=== PATIENT | female | born 1970 | race African-American/Black ===

== ENCOUNTER 2017-06-01 08:40 | Outpatient (CLI) | payer OTHER | END 2017-06-01 08:41 | disposition home or self-care (01) | LOC: BICMAMMO 08:40 | PROVIDERS: ATTEND Family Medicine | DX: Z12.31 Encounter for screening mammogram for malignant neoplasm of breast (principal); Z85.41 Personal history of malignant neoplasm of cervix uteri | CPT/HCPCS: 77063; 77067 ==

== ENCOUNTER 2017-10-12 17:43 | Emergency (ER) | payer OTHER ==
--- NOTE | 2017-10-12 19:18 | RAD ---
CHEST TWO VIEWS: INDICATIONS: Cough. FINDINGS: The lungs are clear. The cardiac silhouette is normal in size. No effusion or pneumothorax. The os seous structures are intact. IMPRESSION: No focal consolidation. POS: [facility]
== END 2017-10-12 19:58 | disposition home or self-care (01) ==
LOC: ERS 17:43
DX: J20.9 Acute bronchitis, unspecified (principal); K21.9 Gastro-esophageal reflux disease without esophagitis; Z79.899 Other long term (current) drug therapy
CPT/HCPCS: 71046; 87081; 87430; 87804